=== PATIENT | female | born 1990 | race Caucasian/White ===

== ENCOUNTER 2021-12-31 05:00 | Inpatient (IN) ==
[2021-12-31] MEDS ORDERED: Azithromycin 500 MG in 0.9 % Sodium Chloride 250 ML IVPB PRN (05:37)
[2021-12-31] MEDS ORDERED: Lidocaine 1% 20 ML MDV INFILT PRN (05:37)
[2021-12-31] MEDS ORDERED: Metoclopramide 10 MG/2 ML VIAL IVP PRN (05:37)
[2021-12-31] MEDS ORDERED: Famotidine 20 MG/2 ML VIAL IVP PRN (05:37)
[2021-12-31] MEDS ORDERED: Naloxone 0.4 MG/ML INJ IVP PRN (05:37)
[2021-12-31] MEDS ORDERED: Ondansetron 4 MG/2 ML VIAL IVP PRN (05:37)
[2021-12-31] MEDS ORDERED: *HR* FentaNYL (PF) 100 MCG/2 ML VIAL IVP PRN (05:37)
[2021-12-31] MEDS ORDERED: D5% in Lactated Ringers 1,000 ML IVC SCH (05:45)
[2021-12-31] MEDS ORDERED: Oxytocin 30 UNIT/503 ML BAG IVC SCH ×2 (05:45→14:03)
[2021-12-31] MEDS ORDERED: Ringers Solution, Lactated 1,000 ML IVC SCH (05:45)
[2021-12-31] MEDS ORDERED: Oxytocin 30 UNIT/503 ML BAG IVC ONE (06:36)
[2021-12-31] MEDS ORDERED: Ringers Solution, Lactated 1,000 ML ONE (06:36)
[2021-12-31] MEDS ORDERED: EPHEDrine sulfate 50 MG/10 ML VIAL IVP PRN (06:36)
[2021-12-31] MEDS ORDERED: Epidural Premix (fent/bupiv) 110 ML EP SCH (06:45)
[2021-12-31 08:19] LABS: Basophils # 0.1 K/mcL (0.0-0.2); Basophils % 0.5 %; Eosinophils # 0.1 K/mcL (0.0-0.6); Hemoglobin 10.8 g/dL (11.5-15.4); Immature Granulocytes % 0.8 % (0-4); Lymphocytes # 3.1 K/mcL (0.6-4.6); Lymphocytes % 23.5 %; Mean Corpuscular HGB Conc 32.7 g/dL (31.6-35.5); Mean Corpuscular Hemoglobin 30.2 pg (28.0-33.3); Mean Corpuscular Volume 92.2 fL (83.0-100.0); Mean Platelet Volume 12.9 fL (9.4-12.4); Monocytes # 1.2 K/mcL (0.0-1.3); Monocytes % 8.8 %; Neutrophils # 8.6 K/mcL (1.6-8.9); Platelet Count 269 K/mcL (140-400); Red Blood Count 3.58 M/mcL (3.82-4.97); Red Cell Distribution Width 13.7 % (11.5-14.5); Segmented Neutrophils % 65.4 %; White Blood Count 13.2 K/mcL (4.3-11.1)
[2021-12-31 09:01] LABS: Amphetamine Screen,Urine Negative ng/mL (Cutoff=1000); Barbiturate Screen,Urine Negative ng/mL (Cutoff=200); Benzodiazepines Screen,Urine Negative ng/mL (Cutoff=200); Cannabinoid Screen,Urine Negative ng/mL (Cutoff = 50); Cocaine Screen,Urine Negative ng/mL (Cutoff= 300); Opiate Screen,Urine Negative ng/mL (Cutoff=300); Phencyclidine Screen,Urine Negative ng/mL (Cutoff=25)
[2021-12-31] MEDS ORDERED: Measles/Mumps/Rubella Vacc 0.5 ML VIAL SQ PRN (14:03)
[2021-12-31] MEDS ORDERED: Ondansetron ODT 4 MG TAB.RAPDIS SL PRN (14:03)
[2021-12-31] MEDS ORDERED: Lanolin 7 G OINT...G. TP PRN (14:03)
[2021-12-31] MEDS ORDERED: Rho Immune Globulin 1,500 UNIT SYRINGE IM PRN (14:03)
[2021-12-31] MEDS ORDERED: Benzocaine/Menthol 56 GM AEROSOL SPRAY TP PRN (14:03)
[2021-12-31] MEDS: Ibuprofen 600 MG TABLET PO SCH (17:56)
[2021-12-31] MEDS: Acetaminophen 325 MG TABLET PO SCH (17:56)
[2021-12-31] MEDS ORDERED: Sennosides 8.6 MG TABLET PO SCH (21:00)
[2022-01-01 07:18] VITALS: BP 109/60; PULSE 78; TEMP 97.7; O2SAT 99
[2022-01-01] MEDS ORDERED: Prenatal Vit/FA 1 EACH TABLET PO SCH (09:00)
[2022-01-01] MEDS: Ibuprofen 600 MG TABLET PO SCH (09:23)
[2022-01-01] MEDS: Acetaminophen 325 MG TABLET PO SCH (09:24)
== END 2022-01-01 13:39 | disposition home or self-care (01) | DRG 560 ==
LOC: 1NENULAB 05:31 → 1NENUOBS 15:41
PROVIDERS: ADMIT Student in an Organized Health Care Education/Training Program; ATTEND Student in an Organized Health Care Education/Training Program